=== PATIENT | female | born 1965 | race Caucasian/White ===

== ENCOUNTER 2016-12-03 04:57 | Day surgery (SDC) | payer OTHER ==
[~2016-12-03] VITALS: Ht 154.9 cm; Wt 79.4 kg
[2016-12-03 05:03] VITALS: BP 131/90
--- NOTE | 2016-12-03 05:15 | NUR ---
PT. AMBULATES TO ER BED 7
--- NOTE | 2016-12-03 05:20 | NUR ---
51Y/F PATIENT PRESENTS TO ED WITH C/O ABDOMINAL PAIN . PT WAS DIAGNOSED ENDOMETRIOSIS HYPERPLACIA, REFERAL LETTER FROM DR. Aminta AGUIRRE FOR D AND C. DENIES N/V/D; SKIN IS PINK/WARM/DRY; AAOX4 WITH EVEN AND STEADY GAIT; LUNGS CLEAR BL; HR EVEN AND REGULAR; PT DENIES ANY FEVER, CP, SOB, OR COUGH AT THIS TIME; PATIENT STATES PAIN OF 8/10 AT THIS TIME; VSS; PATIENT POSITIONED FOR COMFORT; HOB ELEVATED; BEDRAILS UP X2; BED DOWN. ER MD MADE AWARE OF PT STATUS.
[2016-12-03 06:03] LABS: EOSINOPHILS # (AUTO) 0.1 K/uL (0-0.4); WHITE BLOOD COUNT (AUTO) 5.9 K/uL (4.8-10.8)
[2016-12-03 06:07] LABS: ANION GAP 9.8 (8-16); BASOPHILS # (AUTO) 0.3 K/uL (0.00-0.22); BASOPHILS % (AUTO) 4.8 % (0.0-2.0); CALCIUM 8.4 mg/dL (8.5-10.1); CARBON DIOXIDE 27.1 mmol/L (21-32); CREATININE 0.8 mg/dL (0.6-1.3); EOSINOPHILS % (AUTO) 1.9 % (0.0-4.0); HEMOGLOBIN 12.7 g/dL (12.0-16.0); LYMPHOCYTES % (AUTO) 33.8 % (20.5-51.1); MEAN CORPUSCULAR HEMOGLOBIN 29 pg (27-31); MEAN CORPUSCULAR HGB CONC 34 g/dL (33-37); MEAN CORPUSCULAR VOLUME 87 fL (80-94); MONOCYTES # (AUTO) 0.4 K/uL (0.8-1.0); MONOCYTES % (AUTO) 6.6 % (1.7-9.3); NEUTROPHILS # (AUTO) 3.1 K/uL (1.8-7.7); NEUTROPHILS % (AUTO) 52.9 % (42.2-75.2); PLATELET COUNT (AUTO) 200 K/uL (140-450); POTASSIUM 3.9 mmol/L (3.5-5.1); RED BLOOD CELL COUNT(AUTO) 4.38 MIL/uL (4.20-5.40); RED CELL DISTRIBUTION WIDTH 12.6 % (11.6-13.7)
[2016-12-03 06:13] LABS: ALBUMIN 3.6 g/dL (3.4-5.0); TOTAL BILIRUBIN 0.2 mg/dL (0.0-1.0); TOTAL PROTEIN, SERUM 7.7 g/dL (6.4-8.2)
[2016-12-03 06:14] LABS: INR 0.9 (0.8-1.2); PROTHROMBIN TIME 9.5 secs (10.8-13.4)
--- NOTE | 2016-12-03 07:01 | NUR ---
Patient appears to be resting comfortably in bed. Vital Signs within normal limits. Respirations even and unlabored.
--- NOTE | 2016-12-03 07:10 | NUR ---
SEEN BY DR. Mike AGUIRRE AT BEDSIDE.
--- NOTE | 2016-12-03 07:11 | NUR ---
REPORT GIVEN TO CHANDRA DE PAZ. PT. RESTING IN BED, NO S/SX OF DISTRESS AT THIS TIME.
--- NOTE | 2016-12-03 07:17 | NUR ---
PATIENT DENIES DISCOMFORT. TO BE ADMITTED FOR D&C. PER AUTOMATIC PROFILE SHAPER OPERATOR, NOT SCHEDULED AT THIS TIME
--- NOTE | 2016-12-03 07:24 | NUR ---
NPO SINCE 10PM 12/02/16
--- NOTE | 2016-12-03 07:45 | NUR ---
REPORT GIVEN TO NICKYTELEMETRY NURSE
[2016-12-03 07:55] VITALS: BP 145/76
--- NOTE | 2016-12-03 07:55 | NUR ---
PT ARRIVED FROM ER VIA [facility]AL[facility], PT IS AAOX4 ARABIC SPEAKING, SKIN INTACT, IV TO LEFT AC 18G SALINE LOCK PATENT AND INTACT. INITIAL ASSESSMENT COMPLETED, REVIEWED PLAN OF CARE, PT VERBALIZED UNDERSTANDING. ALL NEEDS MET. CALL LIGHT WITHIN REACH.
--- NOTE | 2016-12-03 10:59 | NUR ---
PT CURRENTLY RESTING IN BED, NO S/S OF RESPIRATORY DISTRESS NOTED. ALL NEEDS MET, CALL LIGHT WITHIN REACH. WILL CONTINUE TO MONITOR.
--- NOTE | 2016-12-03 13:27 | NUR ---
PT OUT FROM UNIT TO OR.
[2016-12-03] MEDS ORDERED: ACETAMINOPHEN/CODEINE 300/30MG 1 TAB PO PRN (13:40)
[2016-12-03] MEDS ORDERED: MORPHINE SULFATE 4 MG/ML SYR IM/IVP PRN (13:40)
[2016-12-03] MEDS ORDERED: ONDANSETRON 4 MG/2 ML VIAL IVP PRN ×2 (13:40→14:00)
[2016-12-03] MEDS ORDERED: IBUPROFEN 800 MG TAB PO PRN (13:40)
[2016-12-03] MEDS ORDERED: PROPOFOL 200 MG/20 ML VIAL IV ONE (13:45)
[2016-12-03] MEDS ORDERED: MIDAZOLAM 2 MG/2 ML VIAL ONE (13:53)
[2016-12-03] MEDS ORDERED: fentaNYL 0.05 MG/ML VIAL ONE (13:53)
[2016-12-03] MEDS ORDERED: MEPERIDINE 25 MG/ML SYR ONE (13:54)
[2016-12-03] MEDS ORDERED: HYDROmorphone 1 MG/ML AMP IVP PRN (14:00)
[2016-12-03] MEDS ORDERED: diphenhydrAMINE 50 MG/ML VIAL IVP PRN (14:00)
[2016-12-03] MEDS ORDERED: MEPERIDINE 25 MG/ML SYR IVP PRN (14:00)
[2016-12-03] MEDS ORDERED: LACTATED RINGERS 1,000 ML IV SCH (14:00)
--- NOTE | 2016-12-03 14:50 | NUR ---
PT ARRIVED FROM OR VS: 97.8 BP 128/74, HR 57, 95%, ASSISTED PT TO RESTROOM, PT URINATED. PT C/O PAIN 12/02, WILL MEDICATE PER MD ORDERS.
--- NOTE | 2016-12-03 15:20 | NUR ---
PT C/O NAUSEA, WILL MEDICATE PER MD ORDERS.
[2016-12-03 16:00] VITALS: BP 140/77
--- NOTE | 2016-12-03 17:13 | NUR ---
DISCHARGE INSTRUCTIONS GIVEN, FOLLOW UP INFORMATION GIVEN, PT VERBALIZED UNDERSTANDING, IV REMOVED TIP INTACT, PT AMBULATED, URINATED AND HAD A BM, PT STATES SHE FEELS STABLE TO GO HOME, VS WNL, ALL PERSONAL BELONGING WITH PT.
--- NOTE | 2016-12-03 17:26 | NUR ---
PT WAS WALKED TO FRONT LOBBY IN STABLE CONDITION.
== END 2016-12-03 17:26 | disposition home or self-care (01) ==
LOC: MED 04:57 → MTU 06:59 → MDS 06:59
PROVIDERS: ATTEND Obstetrics & Gynecology
DX: N85.00 Endometrial hyperplasia, unspecified (principal); E66.9 Obesity, unspecified
CPT/HCPCS: 36415; 58120; 71010; 80053; 82948; 85025; 85610; 85730; 93005; 94760; J2175; J2250; J2405; J2704; J3010; J7120; Q0092